=== PATIENT | female | born 1975 | race Two or more races ===

== ENCOUNTER 2021-05-07 13:36 | Emergency (ER) | payer MEDICAID, MEDICARE, OTHER ==
[~2021-05-07] VITALS: Ht 160 cm; Wt 64.4 kg
[2021-05-07 14:20] VITALS: BP 131/74
[2021-05-07] MEDS ORDERED: ACETAMINOPHEN 325 MG TAB PO ONE (15:15)
== END 2021-05-07 15:48 | disposition home or self-care (01) ==
LOC: ER 13:36
DX: S90.122A Contusion of left lesser toe(s) without damage to nail, initial encounter (principal); L03.032 Cellulitis of left toe; E11.9 Type 2 diabetes mellitus without complications; E78.5 Hyperlipidemia, unspecified; I10 Essential (primary) hypertension; W22.8XXA Striking against or struck by other objects, initial encounter; Y93.89 Activity, other specified; Y92.89 Other specified places as the place of occurrence of the external cause; Y99.8 Other external cause status
CPT/HCPCS: 10060; 73630

== ENCOUNTER 2022-07-28 20:21 | Emergency (ER) | payer BC, MEDICAID, OTHER ==
[~2022-07-28] VITALS: Ht 160 cm; Wt 68.3 kg
[2022-07-28] MEDS ORDERED: HYDROcodone-ACET 5/325MG TAB PO ONE (20:45)
[2022-07-28 21:45] LABS: Urine Bacteria FEW /hpf (None Seen); Urine Blood 3+ /uL (Negative); Urine Mucus FEW (None Seen); Urine Specific Gravity 1.025 (1.001-1.035); Urine WBC 21 /hpf (0 - 5)
[2022-07-28 22:00] LABS: Basophils # (auto) 0 10 ^3/uL (0-0.2); Basophils % (auto) 0.8 % (0.0-2.0); Eosinophils # (auto) 0.1 10 ^3/uL (0-0.8); Eosinophils % (auto) 1.5 % (0.0-7.0); Hematocrit 30.9 % (36.0-46.0); Hemoglobin 10.4 g/dL (12.2-16.2); Lymphocytes # (auto) 1.2 10 ^3/uL (0.4-5.4); Lymphocytes % (auto) 19.2 % (10.0-50.0); Mean Corpuscular Hemoglobin 28.8 pg (28.0-32.0); Mean Corpuscular Hgb Conc. 33.6 g/dL (32.0-36.0); Mean Corpuscular Volume 85.5 fL (80.0-100.0); Monocytes # (auto) 0.5 10 ^3/uL (0-1.3); Monocytes % (auto) 8.9 % (0.0-12.0); Neutrophils # (auto) 4.3 10 ^3/uL (1.6-8.6); Neutrophils % (auto) 69.6 % (37.0-80.0); Nucleated Red Blood Cells % 0.1 %; Red Blood Cells 3.61 10^6/uL (4.0-5.20); Red Cell Distribution Width 14.4 % (11.8-14.3); White Blood Cell 6.2 10^3/uL (4.4-10.8)
[2022-07-28 22:15] LABS: Albumin 2.9 g/dL (3.4-5.0); BUN/Creatinine Ratio 20.5; Calcium 8.5 mg/dL (8.5-10.1); Potassium 4.1 mmol/L (3.5-5.1)
[2022-07-28 22:17] LABS: Bilirubin, Total 0.3 mg/dL (0.2-1.0); Total Protein 7.2 g/dL (6.4-8.2)
[2022-07-29] MEDS ORDERED: SUMA50TA16 PO (02:06)
[2022-07-29 02:57] VITALS: BP 135/80
[2022-07-29] MEDS ORDERED: KETOROLAC TROMETH 60MG/2ML VIAL IM ONE (03:30)
== END 2022-07-29 05:06 | disposition home or self-care (01) ==
LOC: ER 20:21
DX: R51.9 Headache, unspecified (principal); I10 Essential (primary) hypertension; E11.9 Type 2 diabetes mellitus without complications; E78.5 Hyperlipidemia, unspecified
CPT/HCPCS: 36415; 70450; 80053; 81001; 81025; 82962; 85025; 93005; 96372; 99285; J1885

== ENCOUNTER 2024-03-14 20:16 | Inpatient (IN) | payer BC, OTHER ==
[~2024-03-14] VITALS: Ht 160 cm; Wt 70.1 kg
[~2024-03-14 20:16] MED LIST: SUMA50TA16 PO
[2024-03-14 21:24] LABS: Urine Bacteria None Seen /hpf (None Seen)
[2024-03-14 21:36] LABS: Urine Blood TRACE /uL (Negative); Urine Clarity Ex.Turbid (Clear); Urine Color Light-Brown (Yellow); Urine Protein, UAD 2+ (Negative); Urine Specific Gravity 1.023 (1.001-1.035); Urine Urobilinogen Normal (Negative); Urine WBC 87 /hpf (0 - 5); Urine WBC Clumps PRESENT /hpf (None Seen); Urine pH 5.5 (5.0-9.0)
[2024-03-14] MEDS: SODIUM CHLORIDE 0.9% 1,000 ML IV ONE (21:36)
[2024-03-14 21:39] LABS: Basophils # (auto) 0 10 ^3/uL (0-0.2); Eosinophils # (auto) 0.2 10 ^3/uL (0-0.8); Lymphocytes # (auto) 1.4 10 ^3/uL (0.4-5.4); Neutrophils # (auto) 2.9 10 ^3/uL (1.6-8.6); Red Cell Distribution Width 16.8 % (11.8-14.3)
[2024-03-14 21:41] LABS: Basophils % (auto) 0.7 % (0.0-2.0); Eosinophils % (auto) 3.1 % (0.0-7.0); Hematocrit 28.8 % (36.0-46.0); Hemoglobin 8.6 g/dL (12.2-16.2); Lymphocytes % (auto) 27.1 % (10.0-50.0); Mean Corpuscular Hemoglobin 21.2 pg (28.0-32.0); Mean Corpuscular Hgb Conc. 29.8 g/dL (32.0-36.0); Mean Corpuscular Volume 71.3 fL (80.0-100.0); Monocytes # (auto) 0.5 10 ^3/uL (0-1.3); Monocytes % (auto) 10.9 % (0.0-12.0); Neutrophils % (auto) 58.2 % (37.0-80.0); Red Blood Cells 4.04 10^6/uL (4.0-5.20); White Blood Cell 5.1 10^3/uL (4.4-10.8)
[2024-03-14 22:00] LABS: INR 0.92 (0.9-1.15); Partial Thromboplastin Time 23.9 SEC (24.5-34.5); Prothrombin Time 9.8 sec (9.3-11.8)
[2024-03-14 22:01] LABS: Alanine Aminotransferase 12 U/L (7-40); Albumin 4.2 g/dL (3.2-4.8); Alkaline Phosphatase 100 U/L (46-116); Anion Gap 7 (5-15); Aspartate Aminotransferase 11 U/L (13-40); BUN/Creatinine Ratio 12.2 (10.0-20.0); Bilirubin, Total 0.3 mg/dL (0.2-1.0); Blood Urea Nitrogen 12 mg/dL (9-23); Calcium 9.5 mg/dL (8.5-10.1); Carbon Dioxide 27 mmol/L (20-30); Chloride 98 mmol/L (98-107); Potassium 4.1 mmol/L (3.5-5.1); Sodium 132 mmol/L (136-145); Total Protein 7.6 g/dL (5.7-8.2)
[2024-03-14 22:05] LABS: Glucose 430 mg/dL (74-106); Lactic Acid w/Reflex 2.6 mmol/L (0.4-2.0)
[2024-03-14 22:30] VITALS: PULSE 76; RESP 18; O2SAT 96
[2024-03-14] MEDS ORDERED: ACETAMINOPHEN 325 MG TAB PO PRN (22:30)
[2024-03-14] MEDS ORDERED: DOCUSATE SOD 100 MG CAP PO PRN (22:30)
[2024-03-14] MEDS ORDERED: HYDROcodone-ACET 5/325MG TAB PO PRN (22:30)
[2024-03-14] MEDS ORDERED: ONDANSETRON HCL 4 MG/2 ML VIAL IV PRN (22:30)
[2024-03-14] MEDS ORDERED: hydrALAZINE HCL 20 MG/ML VL IV PRN (22:30)
[2024-03-14] MEDS ORDERED: MORPHINE SULFATE INJ 2 MG/ml SYRG IV PRN (23:00)
[2024-03-14] MEDS ORDERED: NITROGLYCERIN 0.4 MG SL TAB SL PRN (23:00)
[2024-03-14] MEDS: SODIUM CHLORIDE 0.9% 1,000 ML IV SCH (23:15)
[2024-03-14] MEDS: PIPERACILLIN-TAZOB 3.375GM 100 ML IV ONE (23:15)
[2024-03-15] VITALS (8 sets, daily range): BP systolic 107–146; BP diastolic 63–81; PULSE 89–115; RESP 17–21; TEMP 97.6–98.2; O2SAT 94–100
[2024-03-15] MEDS: ACCU-CHEK COMFORT CURVE STRIP VI SCH ×2 (00:10→12:39)
[2024-03-15] MEDS: InsuLIN REG 1unit/0.01ml Soln (100units/ml) SC SCH ×2 (00:14→12:39)
[2024-03-15 05:00] LABS: Monocytes # (auto) 0.7 10 ^3/uL (0-1.3)
[2024-03-15 05:02] LABS: Basophils # (auto) 0.1 10 ^3/uL (0-0.2); Basophils % (auto) 0.9 % (0.0-2.0); Eosinophils # (auto) 0.1 10 ^3/uL (0-0.8); Eosinophils % (auto) 2.1 % (0.0-7.0); Hematocrit 24.1 % (36.0-46.0); Hemoglobin 7.4 g/dL (12.2-16.2); Lymphocytes # (auto) 1.4 10 ^3/uL (0.4-5.4); Lymphocytes % (auto) 21.4 % (10.0-50.0); Mean Corpuscular Hemoglobin 21.8 pg (28.0-32.0); Mean Corpuscular Hgb Conc. 30.5 g/dL (32.0-36.0); Mean Corpuscular Volume 71.4 fL (80.0-100.0); Monocytes % (auto) 10.8 % (0.0-12.0); Neutrophils # (auto) 4.1 10 ^3/uL (1.6-8.6); Neutrophils % (auto) 64.8 % (37.0-80.0); Red Blood Cells 3.38 10^6/uL (4.0-5.20); Red Cell Distribution Width 16.5 % (11.8-14.3); White Blood Cell 6.3 10^3/uL (4.4-10.8)
[2024-03-15 05:18] LABS: Albumin 3.5 g/dL (3.2-4.8); Alkaline Phosphatase 96 U/L (46-116); Anion Gap 8 (5-15); Aspartate Aminotransferase < 8 U/L (13-40); BUN/Creatinine Ratio 11.5 (10.0-20.0); Blood Urea Nitrogen 10 mg/dL (9-23); Carbon Dioxide 23 mmol/L (20-30); Chloride 105 mmol/L (98-107); Glucose 272 mg/dL (74-106); Potassium 3.7 mmol/L (3.5-5.1); Sodium 136 mmol/L (136-145)
[2024-03-15 05:19] LABS: Bilirubin, Total 0.3 mg/dL (0.2-1.0); Total Protein 6.5 g/dL (5.7-8.2)
[2024-03-15 05:20] LABS: Alanine Aminotransferase < 9 U/L (7-40)
[2024-03-15] MEDS ORDERED: LISI-275 PO (05:38)
[2024-03-15] MEDS ORDERED: METF-370 PO (05:38)
[2024-03-15] MEDS ORDERED: ATOR10TA PO (05:38)
[2024-03-15] MEDS: DEXTROSE (50%) 50ML SYRG IV PRN (08:00)
[2024-03-15] MEDS: cefTRIAXone 1GM/50ML D5W 50 ML IV SCH (08:36)
[2024-03-15] MEDS ORDERED: DEXTROSE (50%) 50ML SYRG IV PRN (09:00)
[2024-03-15 17:26] LABS: Magnesium 1.4 mg/dL (1.6-2.6)
[2024-03-15 17:27] LABS: % Iron Saturation 3.8 % (15-50); Phosphorus 2.9 mg/dL (2.4-5.1)
[2024-03-15 17:30] LABS: Folate (Folic Acid) 17.43 ng/mL (>5.38); Thyroid Stimulating Hormone 0.87 uIU/mL (0.55-4.78)
[2024-03-15 17:31] LABS: Ferritin 1.9 ng/mL (10-291)
[2024-03-15] MEDS: PANTOPRAZOLE 40 MG/10 ML VIAL INJ IV ONE (17:50)
[2024-03-15] MEDS: SODIUM CHLORIDE 0.9% 1,000 ML IV SCH (17:51)
[2024-03-15] MEDS: ATORVASTATIN 20 MG TAB PO SCH (21:31)
[2024-03-15] MEDS: DOCUSATE SOD 100 MG CAP PO SCH (21:31)
[2024-03-15] MEDS: PANTOPRAZOLE 40 MG/10 ML VIAL INJ IV SCH (21:31)
[2024-03-16] VITALS (7 sets, daily range): BP systolic 107–142; BP diastolic 67–88; PULSE 86–103; RESP 16–21; TEMP 97.6–98.3; O2SAT 95–99
[2024-03-16 06:55] LABS: Albumin 3.3 g/dL (3.2-4.8); Alkaline Phosphatase 63 U/L (46-116); Anion Gap 5 (5-15); Aspartate Aminotransferase 10 U/L (13-40); BUN/Creatinine Ratio 13.2 (10.0-20.0); Blood Urea Nitrogen 7 mg/dL (9-23); Calcium 8.4 mg/dL (8.5-10.1); Carbon Dioxide 26 mmol/L (20-30); Chloride 106 mmol/L (98-107); Glucose 124 mg/dL (74-106); Magnesium 1.5 mg/dL (1.6-2.6); Potassium 3.5 mmol/L (3.5-5.1); Sodium 137 mmol/L (136-145)
[2024-03-16 06:56] LABS: Alanine Aminotransferase < 9 U/L (7-40); Bilirubin, Total 0.4 mg/dL (0.2-1.0); Phosphorus 3.6 mg/dL (2.4-5.1); Total Protein 5.9 g/dL (5.7-8.2)
[2024-03-16 06:59] LABS: Basophils # (auto) 0 10 ^3/uL (0-0.2); Lymphocytes # (auto) 1.6 10 ^3/uL (0.4-5.4); Monocytes # (auto) 0.5 10 ^3/uL (0-1.3); Neutrophils # (auto) 2.5 10 ^3/uL (1.6-8.6); White Blood Cell 4.8 10^3/uL (4.4-10.8)
[2024-03-16 07:02] LABS: Basophils % (auto) 0.8 % (0.0-2.0); Eosinophils # (auto) 0.2 10 ^3/uL (0-0.8); Eosinophils % (auto) 3.1 % (0.0-7.0); Hematocrit 24.1 % (36.0-46.0); Hemoglobin 7.6 g/dL (12.2-16.2); Mean Corpuscular Hgb Conc. 31.6 g/dL (32.0-36.0); Mean Corpuscular Volume 69.8 fL (80.0-100.0); Monocytes % (auto) 10.4 % (0.0-12.0); Neutrophils % (auto) 52.7 % (37.0-80.0); Red Blood Cells 3.45 10^6/uL (4.0-5.20); Red Cell Distribution Width 16.7 % (11.8-14.3)
[2024-03-16] MEDS ORDERED: OMNIPAQUE 12mg/ml 500ml ORAL SOLUTION PO ONE (07:45)
[2024-03-16] MEDS: POLYETHYLENE GLYCOL 17 GM PWDR PO SCH (09:27)
[2024-03-17 05:00] VITALS: BP 142/79; PULSE 86; RESP 18; TEMP 97.5; O2SAT 96
[2024-03-17 06:23] LABS: Basophils # (auto) 0 10 ^3/uL (0-0.2); Eosinophils # (auto) 0.1 10 ^3/uL (0-0.8); Hemoglobin 7.4 g/dL (12.2-16.2); Lymphocytes # (auto) 1.4 10 ^3/uL (0.4-5.4); Monocytes # (auto) 0.4 10 ^3/uL (0-1.3); Red Blood Cells 3.35 10^6/uL (4.0-5.20)
[2024-03-17 06:25] LABS: Basophils % (auto) 1.2 % (0.0-2.0); Eosinophils % (auto) 2.9 % (0.0-7.0); Hematocrit 23.4 % (36.0-46.0); Lymphocytes % (auto) 35.8 % (10.0-50.0); Mean Corpuscular Hgb Conc. 31.5 g/dL (32.0-36.0); Monocytes % (auto) 10.5 % (0.0-12.0); Neutrophils % (auto) 49.6 % (37.0-80.0); Red Cell Distribution Width 16.9 % (11.8-14.3)
[2024-03-17 06:34] LABS: Anion Gap 5 (5-15); Carbon Dioxide 27 mmol/L (20-30); Chloride 105 mmol/L (98-107); Potassium 3.6 mmol/L (3.5-5.1); Sodium 137 mmol/L (136-145)
[2024-03-17 06:40] LABS: BUN/Creatinine Ratio 10.5 (10.0-20.0); Blood Urea Nitrogen 6 mg/dL (9-23); Glucose 124 mg/dL (74-106)
[2024-03-17 08:00] VITALS: PULSE 93
[2024-03-17 09:00] VITALS: BP 122/72; PULSE 97; RESP 20; TEMP 98.4; O2SAT 98
[2024-03-17] MEDS ORDERED: LACTULOSE 20Gm/30ML SOLN PO SCH (10:00)
[2024-03-17] MEDS ORDERED: PANT40T PO (10:23)
[2024-03-17] MEDS ORDERED: ACET-1882 PO (10:23)
[2024-03-17] MEDS ORDERED: FERR1TAB36 PO (10:23)
[2024-03-17] MEDS ORDERED: DOCU-265 PO (10:23)
[2024-03-17] MEDS: LACTULOSE 20Gm/30ML SOLN PO ONE (10:36)
[2024-03-17 11:08] VITALS: TEMP 36.9
[2024-03-17] MEDS ORDERED: IRON SUCROSE COMPLEX 100 ML IV SCH (12:00)
[2024-03-17 13:00] VITALS: BP 145/92; PULSE 105; RESP 20; TEMP 98.6; O2SAT 95
[2024-03-17] MEDS: SODIUM FERR GLUC 62.5MG/5ML 125 MG in SODIUM CHL 0.9% 100 ML IV SCH (13:07)
[2024-03-17] MEDS ORDERED: POLY17PO5 PO (13:15)
[2024-03-17] MEDS ORDERED: INSLANTI SC (14:04)
[2024-03-18 11:02] LABS: Carcinoembryonic Antigen 4.1 ng/mL (<=5.0)
[2024-03-20 01:06] LABS: AFP Serum Tumor Marker 2.2 ng/mL (0.0-6.4)
== END 2024-03-17 15:25 | disposition home or self-care (01) | DRG 638 ==
LOC: ER 20:16 → TELE 22:52 → TELE-CENTR 03-15 04:44
PROVIDERS: ADMIT Internal Medicine Pulmonary Disease; ATTEND Internal Medicine Gastroenterology
DX: E11.65 Type 2 diabetes mellitus with hyperglycemia (principal); K92.2 Gastrointestinal hemorrhage, unspecified; N39.0 Urinary tract infection, site not specified; K64.9 Unspecified hemorrhoids; K59.09 Other constipation; D25.9 Leiomyoma of uterus, unspecified; E78.00 Pure hypercholesterolemia, unspecified; I10 Essential (primary) hypertension; J45.909 Unspecified asthma, uncomplicated; D50.9 Iron deficiency anemia, unspecified; Z91.148 Patient's other noncompliance with medication regimen for other reason
CPT/HCPCS: 36415; 71045; 74176; 80048; 80053; 80061; 81001; 82010; 82105; 82306; 82378; 82607; 82728; 82746; 83010; 83036; 83540; 83550; 83605; 83615; 83690; 83735; 83880; 84100; 84443; 84484; 84702; 85025; 85045; 85610; 85730; 86301; 87040; 87086; 93005; C9113; G0378; J1815; J2543

== ENCOUNTER → 2025-03-11 | Outpatient (CLI) | payer BC ==
[~2025-03-11] MED LIST changes: +ACET-1882 PO; +ATOR10TA PO; +DOCU-265 PO; +FERR1TAB36 PO; +INSLANTI SC; +LISI-275 PO; +METF-370 PO; +PANT40T PO; +POLY17PO5 PO; -SUMA50TA16 PO
[2025-03-11 10:52] LABS: Basophils # (auto) 0 10 ^3/uL (0-0.2); Eosinophils # (auto) 0.2 10 ^3/uL (0-0.8); Eosinophils % (auto) 3.4 % (0.0-7.0); Hematocrit 31.2 % (36.0-46.0); Hemoglobin 10.9 g/dL (12.2-16.2); Lymphocytes # (auto) 0.9 10 ^3/uL (0.4-5.4); Lymphocytes % (auto) 20.5 % (10.0-50.0); Mean Corpuscular Hemoglobin 31.1 pg (28.0-32.0); Mean Corpuscular Hgb Conc. 34.8 g/dL (32.0-36.0); Mean Corpuscular Volume 89.3 fL (80.0-100.0); Monocytes # (auto) 0.5 10 ^3/uL (0-1.3); Neutrophils # (auto) 2.9 10 ^3/uL (1.6-8.6); Neutrophils % (auto) 64.1 % (37.0-80.0); Platelet Count (auto) 335 10^3/uL (140-450); Red Blood Cells 3.49 10^6/uL (4.0-5.20); Red Cell Distribution Width 12.9 % (11.8-14.3); White Blood Cell 4.6 10^3/uL (4.4-10.8)
[2025-03-11 11:23] LABS: Creatinine, Urine 39.92 mg/dL (30.0-125.0)
[2025-03-11 11:26] LABS: Alanine Aminotransferase 14 U/L (7-40); Albumin 3.8 g/dL (3.2-4.8); Alkaline Phosphatase 73 U/L (46-116); Anion Gap 5 (5-15); Aspartate Aminotransferase 10 U/L (13-40); BUN/Creatinine Ratio 17.4 (10.0-20.0); Blood Urea Nitrogen 12 mg/dL (9-23); Calcium 9.2 mg/dL (8.7-10.4); Carbon Dioxide 25 mmol/L (20-31); Chloride 104 mmol/L (98-107); Glucose 296 mg/dL (74-106); LDL Cholesterol 101 mg/dL (< 100); Potassium 4.3 mmol/L (3.5-5.1); Sodium 134 mmol/L (136-145); Total Protein 6.7 g/dL (5.7-8.2); Triglycerides 59 mg/dL (< 150)
[2025-03-11 11:27] LABS: Bilirubin, Total 0.3 mg/dL (0.2-1.0); Cholesterol 212 mg/dL (< 200); HDL Cholesterol 102 mg/dL (40-59)
== END | disposition home or self-care (01) ==
LOC: LAB 10:24
PROVIDERS: ATTEND Nurse Practitioner Family
DX: I10 Essential (primary) hypertension (principal); E11.9 Type 2 diabetes mellitus without complications; E55.9 Vitamin D deficiency, unspecified; Z00.01 Encounter for general adult medical examination with abnormal findings
CPT/HCPCS: 36415; 80053; 80061; 82043; 82306; 82570; 83036; 84443; 85025

== ENCOUNTER 2025-07-19 18:19 | Inpatient (IN) | payer BC ==
[~2025-07-19] VITALS: Ht 160 cm; Wt 69.7 kg
[~2025-07-19 18:19] MED LIST changes: +ALBU108A5 INH; +FERR1TAB8 PO; +GAB100C PO; +INSU100I21 SC
--- NOTE | 2025-07-19 18:57 | ED.PDOC ---
History of Present Illness HPI Comments This is a 49 year-old female, with a Hx of DM and bilateral hand neuropathy, who presents to the ED with a chief complaint of high blood sugar levels for the past X2 days. Patient states she is unsure why her BG levels are so elevated. Patient was recently diagnosed with diabetes myelitis, but it has not had proper education through her primary care with respect to medication management. Patient takes insulin, but states she does not want to take too much insulin. Upon arrival to the ED, patients BG levels are 501. Patient has no further complaints at this time and otherwise denies N/V/D, dizziness, weakness, headache, or fatigue. Vital signs were stable Chief Complaint: Hyperglycemia Time Seen by MD: 18:31 Reviewed Notes: Nurses Notes, Medications, Allergies Allergies: Coded Allergies: NO KNOWN ALLERGIES (Unverified , 07/28/22) Home Meds Active Scripts Insulin Glargine (Lantus) 100 Unit/Ml Inj, 5 UNIT SC DAILY for 30 Days, #30 INJ Prov:REINIER WARREN 03/17/24 Polyethylene Glycol 3350 (Miralax Mix-in [place]) 17 Gm Pow, 17 GM PO BID for 30 Days, #30 POW Prov:REINIER WARREN 03/17/24 Ferrous Sulfate (Iron (Ferrous Sulfate)) 50 Mg Tab, 50 MG PO DAILY for 30 Days, #30 TAB Prov:REINIER WARREN 03/17/24 Pantoprazole Sodium Sesquihydr (Pantoprazole Sodium) 40 Mg Tab, 40 MG PO DAILY for 30 Days, #30 TAB Prov:REINIER WARREN 03/17/24 Docusate Sodium (Docusate Sodium) 100 Mg Cap, 100 MG PO BID for 30 Days, #30 CAP Prov:REINIER WARREN 03/17/24 Acetaminophen (Acetaminophen) 325 Mg Tab, 650 MG PO Q6HP PRN for 30 Days, #240 TAB Prov:REINIER WARREN 03/17/24 Reported Medications Lisinopril (Lisinopril) 5 Mg Tab, 5 MG PO 2XW, TAB 03/15/24 Atorvastatin Calcium (Lipitor) 10 Mg Tab, 1 TAB PO QPM, #90 TAB 1 Refill 03/15/24 Metformin Hydrochloride (Metformin Hcl) 500 Mg Tab, 1 TAB PO BID, #60 TAB 3 Refills 03/15/24 Information Source: Patient Mode of Arrival: Ambulatory Severity: Moderate Duration: Since onset Prehospital treatment: None Associated signs and symptoms High Blood Sugar Past Medical History PAST MEDICAL HISTORY: Asthma, DM, High Lipids, HTN Surgical History: Denies all surgeries DIRECTOR INSTRUCTIONAL MATERIAL History: No Pertinent DIRECTOR INSTRUCTIONAL MATERIAL History Family History Family History: Unknown Social History Smoker: Non-Smoker Alcohol: Denies ETOH Use Drugs: Denies Drug Use Lives In: Home Constitutional: reports: others (High Blood Sugar ); denies: chills, diaphoresis, fatigue, fever, malaise, sweats, weakness EENTM: denies: blurred vision, double vision, ear bleeding, ear discharge, ear drainage, ear pain, ear ringing, eye pain, eye redness, hearing loss, mouth pain, mouth swelling, nasal discharge, nose bleeding, nose congestion, nose pain, photophobia, tearing, throat pain, throat swelling, voice changes, others Respiratory: denies: cough, hemoptysis, orthopnea, SOB at rest, shortness of breath, SOB with excertion, stridor, wheezing, others Cardiovascular: denies: chest pain, dizzy spells, diaphoresis, Dyspnea on exertion, edema, irregular heart beat, left arm pain, lightheadedness, palpitations, PND, syncope, others Gastrointestinal: denies: abdomen distended, abdominal pain, blood streaked bowels, constipated, diarrhea, dysphagia, difficulty swallowing, hematemesis, melena, nausea, poor appetite, poor fluid intake, rectal bleeding, rectal pain, vomiting, others Genitourinary: denies: abnormal vagina bleeding, burning, dyspareunia, dysuria, flank pain, frequency, hematuria, incontinence, pain, , vagina discharge, urgency, others Neurological: denies: dizziness, fainting, headache, left sided numbness, left sided weakness, numbness, paresthesia, pre-existing deficit, right sided numbness, right sided weakness, seizure, speech problems, tingling, tremors, weakness, others Musculoskeletal: reports: others (Bilateral hand and bilateral foot neuropathy); denies: back pain, gout, joint pain, joint swelling, muscle pain, muscle stiffness, neck pain Integumetry: denies: bruises, change in color, change in hair/nails, dryness, laceration, lesions, lumps, rash, wounds, others Allergic/Immunocompromised: denies: Difficulty Healing, Frequent Infections, Hives, Itching, others Hematologic/Lymphatic: denies: anemia, blood clots, easy bleeding, easy b ruising, swollen glands, others Endocrine: denies: excessive hunger, excessive sweating, excessive thirst, excessive urination, flushing, intolerance to cold, intolerance to heat, unexplained weight gain, unexplained weight loss, others Psychiatric: denies: anxiety, bipolar disorder, depression, hopeless, panic disorder, schizophrenia, sleepless, suicidal, others All Other Systems: Reviewed and Negative Physical Exam General Appearance: Moderate Distress ([id number] distress due to neuropathy and anxiety related to poor blood sugar management.), Normal HEENT: Normal ENT Inspection, Pharynx Normal, TMs Normal Neck: Full Range of Motion, Non-Tender, Normal, Normal Inspection Respiratory: Chest Non-Tender, Lungs Clear, No Accessory Muscle Use, No Respiratory Distress, Normal Breath Sounds Cardiovascular: No Edema, No JVD, No Murmur, No Gallop, Normal Peripheral Pulses, Regular Rate/Rhythm Breast Exam: Deferred Gastrointestinal: No Organomegaly, Non Tender, No Pulsatile Mass, Normal Bowel Sounds, Soft Genitalia: Deferred Pelvic: Deferred Rectal: Deferred Extremities: No calf tenderness, Normal capillary refill, Normal inspection, Normal range of motion, Non-tender, No pedal edema Neurologic: Alert Cerebellar Function: NOT DONE Reflexes: NOT DONE Skin: Dry, Normal Color, Warm Lymphatic: No Adenopathy Was a procedure done? Was a procedure done?: No Differential Dx Considerations may include: Hyperglycemia due to diabetes myelitis, sepsis, electrolyte abnormality, UTI X-Ray, Labs, Meds, VS Vital Signs Date Time Temp Pulse Resp B/P (MAP) Pulse Ox O2 Delivery O2 Flow Rate FiO2 07/19/25 19:50 97.9 94 18 122/68 (86) 97 97.9 07/19/25 19:50 Room Air* 0 21 07/19/25 18:26 98.3 93 18 138/94 95 98.3 Lab Test 07/19/25 21:56 07/19/25 19:55 07/19/25 19:50 07/19/25 19:48 Range/Units Troponin I High Sensitivity 72 *H 73 *H </=34 ng/L POC Glucose 462 *H 476 *H 70-106 mg/dl Test 07/19/25 19:05 07/19/25 18:44 07/19/25 18:31 07/19/25 18:30 Range/Units White Blood Count 5.9 4.4-10.8 10^3/uL Red Blood Count 3.92 L 4.0-5.20 10^6/uL Hemoglobin 9.2 L 12.2-16.2 g/dL Hematocrit 29.1 L 36.0-46.0 % Mean Corpuscular Volume 74.4 L 80.0-100.0 fL Mean Corpuscular Hemoglobin 23.5 L 28.0-32.0 pg Mean Corpuscular Hemoglobin Concent 31.6 L 32.0-36.0 g/dL Red Cell Distribution Width 16.3 H 11.8-14.3 % Platelet Count 421 140-450 10^3/uL Mean Platelet Volume 7.3 6.9-10.8 fL Neutrophils (%) (Auto) 77.2 37.0-80.0 % Lymphocytes (%) (Auto) 14.0 10.0-50.0 % Monocytes (%) (Auto) 7.5 0.0-12.0 % Eosinophils (%) (Auto) 0.8 0.0-7.0 % Basophils (%) (Auto) 0.5 0.0-2.0 % Neutrophils # (Auto) 4.6 1.6-8.6 10 ^3/uL Lymphocytes # (Auto) 0.8 0.4-5.4 10 ^3/uL Monocytes # (Auto) 0.4 0-1.3 10 ^3/uL Eosinophils # (Auto) 0 0-0.8 10 ^3/uL Basophils # (Auto) 0 0-0.2 10 ^3/uL Nucleated Red Blood Cells 0.0 % Sodium Level 128 L 136-145 mmol/L Potassium Level 4.8 3.5-5.1 mmol/L Chloride Level 94 L 98-107 mmol/L Carbon Dioxide Level 25 20-31 mmol/L Anion Gap 9 5-15 Blood Urea Nitrogen 16 9-23 mg/dL Creatinine 1.10 H 0.550-1.02 mg/dL Glomerular Filtration Rate Calc 61 >90 mL/min BUN/Creatinine Ratio 14.5 10.0-20.0 Serum Glucose 547 *H 74-106 mg/dL Calcium Level 8.4 L 8.7-10.4 mg/dL Troponin I High Sensitivity 77 *H </=34 ng/L Urine Color Light-yellow Yellow Urine Clarity Clear Clear Urine pH 5.5 5.0-9.0 Urine Specific [place] 1.028 1.001-1.035 Urine Protein Trace H Negative Urine Ketones Negative Negative Urine Blood Negative Negative /uL Urine Nitrite Negative Negative Urine Bilirubin Negative Negative Urine Urobilinogen Normal Negative mg/dL Urine Leukocyte Esterase 1+ Negative /uL Urine RBC 3 0 - 4 /hpf Urine Microscopic WBC 7 H 0-5 /HPF Urine Squamous Epithelial Cells Few <5 /hpf Urine Bacteria None seen None Seen /hpf Urine Glucose 4+ H Normal mg/dL POC Glucose 528 *H 501 *H 70-106 mg/dl [place] [id number] Ph: [phone] DIAGNOSTIC IMAGING Diagnostic Imaging Report : [id number] Signed PATIENT: ESTELLA CHAPARROACCT: [id number] UNIT: [id number] : 1975 LOC: ER ROOM / BED: / AGE / SEX: 49 / F ADM STATUS: REG ER SERVICE 1844 ORDERING PHYSICIAN: RAMEZ FIELDS PAC PROCEDURE(s): CXRP - CHEST PORTABLE REASON: Chest pain ORDER NUMBER(s): [id number], ACCESSION NUMBER(s): [id number] EXAM: XY CHEST PORTABLE CLINICAL HISTORY: Chest pain TECHNIQUE: Single AP view of the chest WID: COMPARISON: XY CHEST PORTABLE on DOS: 03/14/24 FINDINGS: Lines and tubes: None Chest: The heart size and pulmonary vasculature is within normal limits. Subtle mixed opacity in the right lung base. No pneumothorax or pleural effusion. The osseous structures are grossly intact. IMPRESSION: 1. Subtle mixed opacity in the right lung base. DDX includes developing pneumonia, atelectasis, or superimposed soft tissue X-Ray, Labs, Meds, VS Comment All studies performed the ED were evaluated by me personally. Serum studies revealed a significant hyperglycemic state, hyponatremia, hypocalcemia, elevated troponins and urinalysis confirmed a urinary tract infection. EKG was unremarkable for any acute cardiac concern. Chest x-ray revealed a subtle mixed opacity in the right lung base which may represent pneumonia. Patient will be admitted for blood sugar management, pneumonia treatment as well as counseling with respect to proper management of blood sugar in the outpatient setting. Images Reviewed?: Images reviewed and evaluated by me Time of 1ST Reevaluation: 22:41 Reevaluation 1ST: Improved Consultation: PCP Patient Education/Counseling: Diagnosis, Treatment Family Education/Counseling: Diagnosis, Treatment, No Family Present SEPSIS Sepsis Screen Date sepsis recognized/suspect: Jul 19, 2025 Time Sepsis recognized/suspect: 1828 Recent Procedure: No On Antibiotic Therapy: No Respiratory Rate >20: No Heart Rate >90: Yes Temp<36 C (96.8 F) or >38.3 C: No SBP <90 or MAP <65 mmHG: No New Acute Mental Status Change: No Is the patient on CPAP, BIPAP,: No Physician Orders Chest Portable (07/19/25 18:44) Heplock Iv (07/19/25 18:44) Electrocardigram (07/19/25 18:44) Sodium Chloride 0.9% (07/19/25 22:45) Calcium Gluc 1,000mg/50ml-Ns (07/19/25 22:45) Accucheck (07/19/25 22:34) Ceftriaxone 1gm/50ml (Rocephin) (07/19/25 22:45) Vital Signs Date Time Temp Pulse Resp B/P (MAP) Pulse Ox O2 Delivery O2 Flow Rate FiO2 07/19/25 19:50 97.9 94 18 122/68 (86) 97 97.9 07/19/25 19:50 Room Air* 0 21 07/19/25 18:26 98.3 93 18 138/94 95 98.3 Laboratory Tests Test 07/19/25 19:05 White Blood Count 5.9 10^3/uL (4.4-10.8) Departure 1 Departure Time of Disposition: 22:41 Impression: Primary Impression: Hyperglycemia due to diabetes mellitus Additional Impressions: Hyponatremia Hypocalcemia Elevated troponin UTI (urinary tract infection) Pneumonia Disposition: 09 ADMITTED INPATIENT Condition: Stable Discharged With: Self Critical Care Note Critical Care Time?: No Stability Stability form required: No Heart Score Heart Score: Heart Score Response (Comments) Value History N/A 0 EKG N/A 0 Age N/A 0 Risk Factors N/A 0 Troponin N/A 0 Total 0 I personally scribed for RAMEZ FIELDS PAC ([email or web address]) on 07/19/25 at 18:57. Electronically submitted by Rica Simons ([email or web address]). I personally scribed for RAMEZ FIELDS PAC ([email or web address]) on 07/19/25 at 19:10. Electronically submitted by Rica Simons ([email or web address]). I personally scribed for RAMEZ FIELDS PAC ([email or web address]) on 07/19/25 at 19:46. Elect ronically submitted by Rica Simons ([email or web address]). RAMEZ FIELDS PAC Jul 19, 2025 18:57
[2025-07-19 19:20] LABS: Nucleated Red Blood Cells % 0.0 %
[2025-07-19 19:22] LABS: Hematocrit 29.1 % (36.0-46.0); Hemoglobin 9.2 g/dL (12.2-16.2); Mean Corpuscular Hemoglobin 23.5 pg (28.0-32.0); Mean Corpuscular Volume 74.4 fL (80.0-100.0)
[2025-07-19 19:30] LABS: Potassium 4.8 mmol/L (3.5-5.1)
[2025-07-19 19:31] LABS: Anion Gap 9 (5-15); Carbon Dioxide 25 mmol/L (20-31)
[2025-07-19 19:36] LABS: BUN/Creatinine Ratio 14.5 (10.0-20.0); Blood Urea Nitrogen 16 mg/dL (9-23)
[2025-07-19 19:41] LABS: Calcium 8.4 mg/dL (8.7-10.4); Chloride 94 mmol/L (98-107); Sodium 128 mmol/L (136-145)
--- NOTE | 2025-07-19 19:41 | DVH ---
EXAM: XY CHEST PORTABLE CLINICAL HISTORY: Chest pain TECHNIQUE: Single AP view of the chest WID: COMPARISON: XY CHEST PORTABLE on DOS: 03/14/24 FINDINGS: Lines and tubes: None Chest: The heart size and pulmonary vasculature is within normal limits. Subtle mixed opacity in the right lung base. No pneumothorax or pleural effusion. The osseous structures are grossly intact. IMPRESSION: 1. Subtle mixed opacity in the right lung base. DDX includes developing pneumonia, atelectasis, or s uperimposed soft tissue
[2025-07-19 19:45] LABS: Glucose 547 mg/dL (74-106)
[2025-07-19] MEDS: HYDROcodone-ACET 5/325MG TAB PO ONE (19:50)
[2025-07-19 20:50] LABS: Urine Protein, UAD TRACE (Negative)
[2025-07-19] MEDS ORDERED: InsuLIN REG 1unit/0.01ml Soln (100units/ml) IV ONE (22:45)
[2025-07-19] MEDS: SODIUM CHLORIDE 0.9% 1,000 ML IV ONE (23:12)
[2025-07-19] MEDS: CALCIUM GLUC 1,000mg/50ml-NS 50 ML IV ONE (23:25)
[2025-07-19] MEDS: InsuLIN REG 1unit/0.01ml Soln (100units/ml) IV ONE (23:52)
[2025-07-20] VITALS (9 sets, daily range): BP systolic 104–157; BP diastolic 72–92; PULSE 78–91; RESP 16–20; TEMP 97.7–98.8; O2SAT 97–99
[2025-07-20] MEDS: AZITHROMYCIN 500MG/ 250ML 250 ML IV ONE (00:22)
[2025-07-20] MEDS ORDERED: DEXTROSE (50%) 50ML SYRG IV PRN (00:30)
--- NOTE | 2025-07-20 00:54 | DVHHPRES ---
History of Present Illness Resident Creating Document: LON KEVIN RESIDENT History of Present Illness This is a 49-year-old female with past medical history of hypertension, dyslipidemia, type 2 diabetes mellitus with uncontrolled hyperglycemia, history of chronic anemia due to heavy menstrual bleeding. Patient presented to the ED with chief complaint of dizziness and generalized weakness associated with dry mouth. Patient states that blood glucose has been significantly elevated at home over 560. Patient states that was feeling dry mouth, dizzy and weak and stated that Humalog insulin was not able to control her sugar. Patient denied fever/chills, nausea or vomiting. On admission, hemoglobin was 9.2 CBC on normal range, blood glucose [id number] but anion gap was nine. There were no ketones on urinalysis but this one was suggesting UTI for which IV ceftriaxone was started. Troponins came back slightly elevated at 72. We ordered EKG and echocardiogram. We will start the patient on Rviocf73 units daily and moderate sliding scale insulin. We will admit the patient for further assessment and management of blood glucose. Home medications: Metformin 1000 mg daily, Humalog7 units in the morning,5 units in the afternoon after lunch and 7 units at night. Surgical history: Denies Social history: Patient denies alcohol intake, drug intake or smoking. Cardiovascular: HTN, hyperipidemia Endocrine: Diabetes Past Surgical History: None Family History: None Smoke: No ALCOHOL: none Drugs: None Lives: with Family Domestic Violence: Neg Review of Systems Constitutional: Yes: Weakness; No: Fever, Chills, Sweats, Malaise, Other Eyes: No: Pain, Vision change, Conjunctivae inflammation, Eyelid inflammation, Other, Redness ENT: Other (Dry mucous membrane); No: Ear pain, Ear discharge, Nose pain, Nose discharge, Nose congestion, Mouth pain, Mouth swelling, Throat pain, Throat swelling Respiratory: No: Cough, Dry, Shortness of breath, SOB with excertion, Wheezing, Hemoptysis, Pleuritic Pain, Sputum, Wheezing, Other Cardiovascular: No: Chest Pain, Palpitations, Orthopnea, Paroxysmal Noc. Dyspnea, Edema, Lt Headedness, Other Gastrointestinal: No: Nausea, Vomiting, Abdominal Pain, Diarrhea, Constipation, Melena, Hematochezia, Other Genitourinary: No Dysuria, No Frequency, No Incontinence, No Hematuria, No Retention, No Other Musculoskeletal: No: other, neck pain, shoulder pain, arm pain, back pain, hand pain, leg pain, foot pain Skin: No: Rash, Lesions, Jaundice, Bruising, Other Neurological: No: Weakness, Numbness, Incoordination, Change in speech, Confusion, Seizures, Other Allergies: Coded Allergies: NO KNOWN ALLERGIES (Unverified , 07/28/22) Medications Current Medications Medications Dose Ordered Sig/Damaso Route Start Time Stop Time Status Last Admin Dose Admin Sodium Chloride 1,000 ml @ 60 mls/hr [id number] IV 07/20/25 00:30 UNV Acetaminophen 650 mg Q6HP PRN PO 07/20/25 00:30 UNV Diagnostic Test (Pha) 1 strip ACHS 07/20/25 07:00 UNV Insulin Human Regular HS SC 07/20/25 22:00 UNV Insulin Human Regular AC SC 07/20/25 07:00 UNV Dextrose 50 ml UD PRN IV 07/20/25 00:30 UNV Insulin Glargine 15 units QAM SC 07/20/25 00:30 UNV Ceftriaxone Sodium 50 ml @ 100 mls/hr DAILY IV 07/20/25 00:45 UNV Exam Vital Signs Vital Signs Date Time Temp Pulse Resp B/P (MAP) Pulse Ox O2 Delivery O2 Flow Rate FiO2 07/19/25 19:50 97.9 94 18 122/68 (86) 97 97.9 07/19/25 19:50 Room Air* 0 21 General Appearance: Alert, Oriented X3, Cooperative, No acute distress HEENT: Atraumatic, PERRLA, EOMI, Other (Dry mucous membranes) Respiratory: Clear to auscultation, Normal air movement Cardiovascular: Regular rate, Normal S1, Normal S2, No murmurs Abdominal: Normal bowel sounds, Soft, No tenderness, No hepatospenomegaly, No masses Extremities: No clubbing, No cyanosis, No edema, Normal pulses, No tenderness/swelling Skin: No rashes, No breakdown, No significant lesion Neuro: Normal gait, Normal speech, Strength at 5/5 X4 ext, Normal tone, Sensation intact, Cranial nerves 3-12 NL, Reflexes 2+ Psych/Mental Status: Mental status NL, Mood NL Labs/Xrays Labs Test 07/19/25 23:33 07/19/25 21:56 07/19/25 19:05 07/19/25 18:44 Range/Units POC Glucose 407 *H 70-106 mg/dl Troponin I High Sensitivity 72 *H </=34 ng/L White Blood Count 5.9 4.4-10.8 10^3/uL Red Blood Count 3.92 L 4.0-5.20 10^6/uL Hemoglobin 9.2 L 12.2-16.2 g/dL Hematocrit 29.1 L 36.0-46.0 % Mean Corpuscular Volume 74.4 L 80.0-100.0 fL Mean Corpuscular Hemoglobin 23.5 L 28.0-32.0 pg Mean Corpuscular Hemoglobin Concent 31.6 L 32.0-36.0 g/dL Red Cell Distribution Width 16.3 H 11.8-14.3 % Platelet Count 421 140-450 10^3/uL Mean Platelet Volume 7.3 6.9-10.8 fL Neutrophils (%) (Auto) 77.2 37.0-80.0 % Lymphocytes (%) (Auto) 14.0 10.0-50.0 % Monocytes (%) (Auto) 7.5 0.0-12.0 % Eosinophils (%) (Auto) 0.8 0.0-7.0 % Basophils (%) (Auto) 0.5 0.0-2.0 % Neutrophils # (Auto) 4.6 1.6-8.6 10 ^3/uL Lymphocytes # (Auto) 0.8 0.4-5.4 10 ^3/uL Monocytes # (Auto) 0.4 0-1.3 10 ^3/uL Eosinophils # (Auto) 0 0-0.8 10 ^3/uL Basophils # (Auto) 0 0-0.2 10 ^3/uL Nucleated Red Blood Cells 0.0 % Sodium Level 128 L 136-145 mmol/L Potassium Level 4.8 3.5-5.1 mmol/L Chloride Level 94 L 98-107 mmol/L Carbon Dioxide Level 25 20-31 mmol/L Anion Gap 9 5-15 Blood Urea Nitrogen 16 9-23 mg/dL Creatinine 1.10 H 0.550-1.02 mg/dL Glomerular Filtration Rate Calc 61 >90 mL/min BUN/Creatinine Ratio 14.5 10.0-20.0 Serum Glucose 547 *H 74-106 mg/dL Calcium Level 8.4 L 8.7-10.4 mg/dL Urine Color Light-yellow Yellow Urine Clarity Clear Clear Urine pH 5.5 5.0-9.0 Urine Specific [place] 1.028 1.001-1.035 Urine Protein Trace H Negative Urine Ketones Negative Negative Urine Blood Negative Negative /uL Urine Nitrite Negative Negative Urine Bilirubin Negative Negative Urine Urobilinogen Normal Negative mg/dL Urine Leukocyte Esterase 1+ Negative /uL Urine RBC 3 0 - 4 /hpf Urine Microscopic WBC 7 H 0-5 /HPF Urine Squamous Epithelial Cells Few <5 /hpf Urine Bacteria None seen None Seen /hpf Urine Glucose 4+ H Normal mg/dL SEPSIS Sepsis Screen Date sepsis recognized/suspect: Jul 19, 2025 Time Sepsis recognized/suspect: 1828 Recent Procedure: No On Antibiotic Therapy: No Respiratory Rate >20: No Heart Rate >90: Yes Temp<36 C (96.8 F) or >38.3 C: No SBP <90 or MAP <65 mmHG: No New Acute Mental Status Change: No Is the patient on CPAP, BIPAP,: No Physician Orders Chest Portable (07/19/25 18:44) Heplock Iv (07/19/25 18:44) Electrocardigram (07/19/25 18:44) Accucheck (07/19/25 22:34) Azithromycin 500mg/ 250ml (Zithromax 50 (07/19/25 23:15) Beta-Hydroxybutyrate (07/20/25 00:00) Admit (07/20/25 00:23) Code Status (07/20/25 00:23) Vital Signs .PER UNIT PROTOCOL (07/20/25 00:23) Review Orders With Adm.Md (07/20/25 00:23) Encourage Activity As Tolerate (07/20/25 00:23) Consistent Carb(Ccho)Diabetes (07/20/25 Breakfast) Sodium Chloride 0.9% (07/20/25 00:30) Acetaminophen Tablet (Tylenol Tablet) (07/20/25 00:30) Notify Md Of Changes From Base (07/20/25 00:23) Advance Directive (07/20/25 00:23) Echo 2d Mode Cardiac Dop (07/20/25 00:23) Basic Metabolic Panel (07/21/25 04:00) Complete Blood Count (07/21/25 04:00) Lipid Panel (07/20/25 04:00) Urine Bacterial Culture (07/20/25 00:23) Patient Condition (07/20/25 00:23) Allergies (07/20/25 00:23) Drug Screen (07/20/25 00:23) Hemoglobin A1c (07/20/25 00:23) Electrocardigram (07/20/25 00:30) Glucose Blood (Accu-Chek Comfort Curve T (07/20/25 07:00) Insulin R (Human) (Insulin R) (07/20/25 22:00) Insulin R (Human) (Insulin R) (07/20/25 07:00) Dextrose 50% Syringe (07/20/25 00:30) Insulin Lantus (Glargine) (Lantus) (07/20/25 00:30) Ceftriaxone 1gm/50ml (Rocephin) (07/20/25 00:45) Vital Signs Date Time Temp Pulse Resp B/P (MAP) Pulse Ox O2 Delivery O2 Flow Rate FiO2 07/19/25 19:50 97.9 94 18 122/68 (86) 97 97.9 07/19/25 19:50 Room Air* 0 21 07/19/25 18:26 98.3 93 18 138/94 95 98.3 Laboratory Tests Test 07/19/25 19:05 White Blood Count 5.9 10^3/uL (4.4-10.8) Medications Medications Dose Ordered Sig/Damaso Route Start Time Stop Time Status Last Admin Dose Admin Azithromycin 250 ml @ 125 mls/hr ONCE ONCE IV 07/19/25 23:15 07/20/25 01:14 07/20/25 00:22 125 MLS/HR Calcium Gluconate/ Sodium Chloride 50 ml @ 100 mls/hr ONCE ONCE IV 07/19/25 22:45 07/19/25 23:14 DC 07/19/25 23:25 100 MLS/HR Ceftriaxone Sodium 50 ml @ 100 mls/hr ONCE ONCE IV 07/19/25 22:45 07/19/25 23:14 DC 07/19/25 23:51 100 MLS/HR Insulin Human Regular 12 units ONCE ONCE IV 07/19/25 23:45 07/19/25 23:46 DC 07/19/25 23:52 12 UNITS Sodium Chloride 1,000 ml @ 1,000 mls/hr Q1H ONCE IV 07/19/25 22:45 07/19/25 23:44 DC 07/19/25 23:12 1,000 MLS/HR Assessment/Plan Assessment/Plan Assessment/plan Acute severe uncontrolled type 2 diabetes with hyperglycemia without DKA UTI NSTEMI likely type Chronic microcytic hypochromic anemia Primary hypertension Dyslipidemia Plan -ordered EKG -troponins were positive 72-77 -ordered echocardiogram -urinalysis suggestive of UTI, start IV ceftriaxone daily -ordered hemoglobin A1c, blood glucose 547. Start Lantus 15 units daily and moderate sliding scale insulin -monitor blood glucose closely -iron tablets Goals of care discussed with the patient at bedside, full code Plan discussed with Dr. Bailey Plan discussed with: Patient My Orders Orders - LON KEVIN Procedure Category Date Status Time Beta-Hydroxybutyrate LAB 07/20/25 In Process 00:00 Admit ADMIT 07/20/25 Transmitted 00:23 Code Status CODE 07/20/25 Transmitted 00:23 Vital Signs GEE 07/20/25 In Process 00:23 Review Orders With GEE 07/20/25 In Process Adm. 00:23 Encourage Activity As GEE 07/20/25 In Process Tolerate 00:23 Consistent DIET 07/20/25 Transmitted Carb(Ccho)Diabetes Breakfast Sodium Chloride 0.9% PHA 07/20/25 Logged 00:30 Acetaminophen Tablet PHA 07/20/25 Logged (Tylenol Tablet) 00:30 Notify Of Changes GEE 07/20/25 In Process From Base 00:23 Advance Directive GEE 07/20/25 In Process 00:23 Echo 2d Mode Cardiac US 07/20/25 Logged DOP 00:23 Basic Metabolic Panel LAB 07/21/25 Verified 04:00 Complete Blood Count LAB 07/21/25 Verified 04:00 Lipid Panel LAB 07/20/25 Logged 04:00 Urine Bacterial EDWINA 07/20/25 Logged Culture 00:23 Patient Condition ORDERS 07/20/25 Transmitted 00:23 Allergies GEE 07/20/25 In Process 00:23 Drug Screen LAB 07/20/25 Logged 00:23 Hemoglobin A1c LAB 07/20/25 Logged 00:23 Electrocardigram EKG 07/20/25 Logged 00:30 Glucose Blood PHA 07/20/25 Logged (Accu-Chek Comfort 07:00 Insulin R (Human) PHA 07/20/25 Logged (Insulin R) 22:00 Insulin R (Human) PHA 07/20/25 Logged (Insulin R) 07:00 Dextrose 50% Syringe PHA 07/20/25 Logged 00:30 Insulin Lantus PHA 07/20/25 Logged (Glargine) (Lantus) 00:30 Ceftriaxone 1gm/50ml PHA 07/20/25 Logged (Rocephin) 00:45 Date of Service: Jul 20, 2025 ([place] Patient) Billing Provider: LON KEVIN Common Visit Codes: [id number] INP/OBS CARE (HIGH) Secondary Visit Codes: [id number] CARE PLAN 30 MINUTES LON KEVIN Jul 20, 2025 00:54 JOURDAN BAILEY MD Jul 20, 2025 13:03
[2025-07-20] MEDS: INSULIN LANTUS (GLARGINE) 1 /0.01ml (100units/ml) SC SCH (01:15)
[2025-07-20 03:53] LABS: Iron 26.0 ug/dL (50-170)
[2025-07-20 03:54] LABS: Triglycerides 133 mg/dL (< 150)
[2025-07-20 03:55] LABS: Total Iron Binding Capacity 344.0 ug/dL (250-425)
[2025-07-20 03:56] LABS: Cholesterol 191 mg/dL (< 200)
[2025-07-20] MEDS: SODIUM CHLORIDE 0.9% 1,000 ML IV SCH (04:28)
[2025-07-20 04:30] LABS: HDL Cholesterol 84 mg/dL (40-59)
[2025-07-20] MEDS: InsuLIN REG 1unit/0.01ml Soln (100units/ml) SC SCH ×2 (06:53→21:35)
[2025-07-20] MEDS: ACCU-CHEK COMFORT CURVE STRIP VI SCH (06:54)
--- NOTE | 2025-07-20 08:43 | ECG ---
[facility] Test Date: 2025-07-20 Test Time: 08:41:57 Pat Name: ESTELLA CHAPARRO Department: Room: [facility] B Gender: F Carboy Filler: shane : 1975 Requested By: LON GAN Order Number: [id number] Reading MD: Greg Raymond Measurements Intervals [place] Rate: 77 P: 25 DC: 155 QRS: 62 QRSD: 77 T: 55 QT: 371 QTc: 420 Interpretive Statements Sinus rhythm Electronically Signed On 07-24-2025 21:06:20 PDT by Greg Raymond Please click the below link to view image of tracing.
[2025-07-20 09:26] LABS: Amphetamine Screen, Urine Neg (NEGATIVE); Barbiturate Scree,Urine Neg (NEGATIVE); Benzodiazephine Screen, Urine Neg (NEGATIVE); Cannabinoid Screen, Urine Neg (NEGATIVE); Cocaine Screen, Urine Neg (NEGATIVE); Opiate Scree,Urine Neg (NEGATIVE); Phencyclidine Screen, Urine Neg (NEGATIVE)
--- NOTE | 2025-07-20 11:47 | DVHPN2 ---
Reviewed: Care Plan, H&P, Labs, Medications, Previous Orders, Radiology Changes from previous H/P or p: No Changes Eyes: No Pain, No Vision change, No Conjunctivae inflammation, No Eyelid inflammation, No Other, No Redness ENT: No Ear pain, No Ear discharge, No Nose pain, No Nose discharge, No Nose congestion, No Mouth pain, No Mouth swelling, No Throat pain, No Throat swelling; Other (Dry mucous membrane) Cardiovascular: No Chest Pain, No Palpitations, No Orthopnea, No Paroxysmal Noc. Dyspnea, No Edema, No Lt Headedness, No Other Respiratory: No Cough, No Dry, No Shortness of breath, No SOB with excertion, No Wheezing, No Hemoptysis, No Pleuritic Pain, No Sputum, No Other Gastrointestinal: No Nausea, No Vomiting, No Abdominal Pain, No Diarrhea, No Constipation, No Melena, No Hematochezia, No Other Genitourinary: No Dysuria, No Frequency, No Incontinence, No Hematuria, No Retention, No Other Musculoskeletal: No other, No neck pain, No shoulder pain, No arm pain, No back pain, No hand pain, No leg pain, No foot pain Skin: No Rash, No Lesions, No Jaundice, No Bruising, No Other Objective Vitals Vital Signs Date Time Temp Pulse Resp B/P (MAP) Pulse Ox O2 Delivery O2 Flow Rate FiO2 07/20/25 04:00 98.5 83 18 157/92 (113) 97 98.5 07/20/25 03:38 Room Air* 0 21 Intake/Output Intake and Output 07/20/25 07:00 Intake Total 240 ml Balance 240 ml Intake Oral 240 ml Medications Current Medications Medications Dose Ordered Sig/Damaso Route Start Time Stop Time Status Last Admin Dose Admin Sodium Chloride 1,000 ml @ 60 mls/hr [id number] IV 07/20/25 00:30 07/20/25 04:28 60 MLS/HR Acetaminophen 650 mg Q6HP PRN PO 07/20/25 00:30 Diagnostic Test (Pha) 1 strip ACHS 07/20/25 07:00 07/20/25 06:54 1 STRIP Insulin Human Regular HS SC 07/20/25 22:00 Insulin Human Regular AC SC 07/20/25 07:00 07/20/25 06:53 9 UNITS Dextrose 50 ml UD PRN IV 07/20/25 00:30 Insulin Glargine 15 units QAM SC 07/20/25 00:30 07/20/25 06:54 15 UNITS Ceftriaxone Sodium 50 ml @ 100 mls/hr DAILY@2100 IV 07/20/25 21:00 Laboratory Results Laboratory Tests 07/19/25 19:05 Chemistry Test 07/19/25 19:05 Calcium Level 8.4 mg/dL (8.7-10.4) L Lipid panel Test 07/20/25 03:08 Cholesterol Level 191 mg/dL (< 200) HDL Cholesterol 84 mg/dL (40-59) H Triglycerides Level 133 mg/dL (< 150) HgA1c, TSH Test 07/20/25 03:08 Hemoglobin A1c > 14.0 % A1C (<5.7) H Urinalysis Test 07/19/25 18:44 Urine Color Light-yellow (Yellow) Urine Clarity Clear (Clear) Urine pH 5.5 (5.0-9.0) Urine Specific [place] 1.028 (1.001-1.035) Urine Protein Trace (Negative) H Urine Ketones Negative (Negative) Urine Blood Negative /uL (Negative) Urine Nitrite Negative (Negative) Urine Bilirubin Negative (Negative) Urine Urobilinogen Normal mg/dL (Negative) Urine Leukocyte Esterase 1+ /uL (Negative) Urine RBC 3 /hpf (0 - 4) Urine Microscopic WBC 7 /HPF (0-5) H Urine Squamous Epithelial Cells Few /hpf (<5) Urine Bacteria None seen /hpf (None Seen) Urine Glucose 4+ mg/dL (Normal) H Labs and/or images reviewed: Labs reviewed by me, Image(s) reviewed by me Assessment/Plan Assessment/Plan Acute severe uncontrolled type 2 diabetes with hyperglycemia without DKA blood sugar 560, A1c more than 14, diabetic education Insulin aggressive sliding scale UTI urine cultures Rocephin NSTEMI likely type 2 Chronic microcytic hypochromic anemia secondary to heavy vaginal bleeding Primary hypertension Dyslipidemia Plan discussed with: Patient Date of Service: Jul 20, 2025 Billing Provider: RACHELLE MCKEON MD Common Visit Codes: [id number] INP/OBS CARE(HIGH) RACHELLE MCKEON MD Jul 20, 2025 11:47
[2025-07-20] MEDS: LISINOPRIL 20 MG TAB PO ONE (13:48)
[2025-07-20] MEDS: ACETAMINOPHEN 325 MG TAB PO PRN (23:45)
[2025-07-21] VITALS (9 sets, daily range): BP systolic 136–164; BP diastolic 86–97; PULSE 82–99; RESP 17–19; TEMP 97.6–98.8; O2SAT 95–98
[2025-07-21 06:17] LABS: Anion Gap 8 (5-15); Carbon Dioxide 23 mmol/L (20-31); Chloride 104 mmol/L (98-107); Potassium 4.0 mmol/L (3.5-5.1)
[2025-07-21 06:22] LABS: Calcium 8.0 mg/dL (8.7-10.4); Sodium 135 mmol/L (136-145)
[2025-07-21 06:24] LABS: BUN/Creatinine Ratio 20.3 (10.0-20.0); Blood Urea Nitrogen 15 mg/dL (9-23)
[2025-07-21 06:27] LABS: Glucose 160 mg/dL (74-106)
[2025-07-21 06:30] LABS: Hematocrit 25.3 % (36.0-46.0); Hemoglobin 8.3 g/dL (12.2-16.2); Mean Corpuscular Hemoglobin 24.2 pg (28.0-32.0); Mean Corpuscular Volume 73.4 fL (80.0-100.0); Nucleated Red Blood Cells % 0.1 %
[2025-07-21] MEDS: LISINOPRIL 20 MG TAB PO SCH (09:38)
--- NOTE | 2025-07-21 11:24 | DVHPN2 ---
Reviewed: Care Plan, H&P, Labs, Medications, Previous Orders, Radiology Changes from previous H/P or p: No Changes Eyes: No Pain, No Vision change, No Conjunctivae inflammation, No Eyelid inflammation, No Other, No Redness ENT: No Ear pain, No Ear discharge, No Nose pain, No Nose discharge, No Nose congestion, No Mouth pain, No Mouth swelling, No Throat pain, No Throat swelling; Other (Dry mucous membrane) Cardiovascular: No Chest Pain, No Palpitations, No Orthopnea, No Paroxysmal Noc. Dyspnea, No Edema, No Lt Headedness, No Other Respiratory: No Cough, No Dry, No Shortness of breath, No SOB with excertion, No Wheezing, No Hemoptysis, No Pleuritic Pain, No Sputum, No Other Gastrointestinal: No Nausea, No Vomiting, No Abdominal Pain, No Diarrhea, No Constipation, No Melena, No Hematochezia, No Other Genitourinary: No Dysuria, No Frequency, No Incontinence, No Hematuria, No Retention, No Other Musculoskeletal: No other, No neck pain, No shoulder pain, No arm pain, No back pain, No hand pain, No leg pain, No foot pain Skin: No Rash, No Lesions, No Jaundice, No Bruising, No Other Objective Vitals Vital Signs Date Time Temp Pulse Resp B/P (MAP) Pulse Ox O2 Delivery O2 Flow Rate FiO2 07/21/25 09:38 131/85 07/21/25 09:32 98.1 07/21/25 09:00 84 18 97 07/20/25 20:00 Room Air* 0 21 Intake/Output Intake and Output 07/21/25 07:00 Intake Total 2445 ml Balance 2445 ml Intake Oral 1725 ml IV Total 720 ml # Voids 3 Medications Current Medications Medications Dose Ordered Sig/Damaso Route Start Time Stop Time Status Last Admin Dose Admin Sodium Chloride 1,000 ml @ 60 mls/hr [id number] IV 07/20/25 00:30 07/20/25 19:25 60 MLS/HR Acetaminophen 650 mg Q6HP PRN PO 07/20/25 00:30 07/21/25 09:32 650 MG Diagnostic Test (Pha) 1 strip ACHS 07/20/25 07:00 07/21/25 06:25 1 STRIP Insulin Human Regular HS SC 07/20/25 22:00 07/20/25 21:35 3 UNITS Insulin Human Regular AC SC 07/20/25 07:00 07/21/25 06:21 3 UNITS Dextrose 50 ml UD PRN IV 07/20/25 00:30 Insulin Glargine 15 units QAM SC 07/20/25 00:30 07/21/25 06:22 15 UNITS Ceftriaxone Sodium 50 ml @ 100 mls/hr DAILY@2100 IV 07/20/25 21:00 07/20/25 21:42 100 MLS/HR Lisinopril 40 mg DAILY PO 07/21/25 10:00 07/21/25 09:38 40 MG Laboratory Results Laboratory Tests 07/21/25 05:05 Chemistry Test 07/21/25 05:05 Calcium Level 8.0 mg/dL (8.7-10.4) L Urinalysis Test 07/19/25 18:44 Urine Color Light-yellow (Yellow) Urine Clarity Clear (Clear) Urine pH 5.5 (5.0-9.0) Urine Specific [place] 1.028 (1.001-1.035) Urine Protein Trace (Negative) H Urine Ketones Negative (Negative) Urine Blood Negative /uL (Negative) Urine Nitrite Negative (Negative) Urine Bilirubin Negative (Negative) Urine Urobilinogen Normal mg/dL (Negative) Urine Leukocyte Esterase 1+ /uL (Negative) Urine RBC 3 /hpf (0 - 4) Urine Microscopic WBC 7 /HPF (0-5) H Urine Squamous Epithelial Cells Few /hpf (<5) Urine Bacteria None seen /hpf (None Seen) Urine Glucose 4+ mg/dL (Normal) H Microbiology Microbiology Date/Time Source Procedure Growth Status 07/20/25 00:23 Voided Urine Urine Culture - Preliminary Resulted Labs and/or images reviewed: Labs reviewed by me, Image(s) reviewed by me Assessment/Plan Assessment/Plan Acute severe uncontrolled type 2 diabetes with hyperglycemia without DKA blood sugar 560, A1c more than 14, diabetic education Insulin aggressive sliding scale UTI urine cultures Enterococcus species, final sensitivity pending, continue Rocephin NSTEMI likely type 2 Chronic microcytic hypochromic anemia secondary to heavy vaginal bleeding Primary hypertension Dyslipidemia Plan discussed with: Patient My Orders Orders - RACHELLE MCKEON MD Procedure Category Date Status Time Lisinopril Tablet PHA 07/21/25 In Process (Zestril Tablet) 10:00 Date of Service: Jul 21, 2025 Billing Provider: RACHELLE MCKEON MD Common Visit Codes: [id number] INP/OBS CARE(HIGH) RACHELLE MCKEON MD Jul 21, 2025 11:23
[2025-07-21] MEDS: ACCU-CHEK COMFORT CURVE STRIP VI SCH (11:30)
[2025-07-21] MEDS: InsuLIN REG 1unit/0.01ml Soln (100units/ml) SC SCH ×2 (11:30→22:01)
[2025-07-21] MEDS ORDERED: DEXTROSE (50%) 50ML SYRG IV PRN (11:30)
--- NOTE | 2025-07-21 16:35 | DVHSR ---
APPROVED REPORT EXAM: Two-dimensional and M-mode echocardiogram with Doppler and color Doppler. Blood Pressure: 163/96 mmHg INDICATION Syncope NSTEMI, stable angina RISK FACTORS Height: 63, Weight: 147 DIMENSIONS LVDd4.5 (3.8-5.7cm)LA (2D)3.8 (1.9-4.0cm)Aortic Root3.1 (2.0-3.7cm) LVDs2.9 (2.5-4.0cm)LA (MM) (1.9-4.0cm)Aortic Cusp Exc1.6 (1.5-2.0cm) EF (%) 65.0 (55-70%)Rt. Atrium3.7 (1.9-4.0cm)Asc. Aorta cm IVSd1.0 (0.7-1.1cm)RV (D) (1.8-2.4cm) PWd1.1 (0.7-1.1cm) Mitral Valve MitralMitral Stenosis E wave0.82m/sMV Mean GR.mmHg A wave1.07m/sMV Peak GR.mmHg E/A ratio0.82D MVAcm2 DECEL [id number] 1/2 [id number] IVRTmsDop MVA3.86cm2 Aortic Valve Aortic ValveAortic Stenosis V11.08m/Theodore Mean GR.6mmHg V21.77m/Theodore Peak GR.13mmHg LVOT Diameter2.0 (1.8-2.4cm)Doppler AVA1.92cm2 Pulmonic Valve V21.02m/s Tricuspid Valve TR Velocity2.17m/s [id number] Conclusion lvef 65% mild LVH normal rv function normal atria no sever valve abnormalities noted
[2025-07-21] MEDS: GABAPENTIN 100 MG CAP PO SCH (21:44)
[2025-07-22] VITALS (9 sets, daily range): BP systolic 98–136; BP diastolic 64–88; PULSE 20–96; RESP 17–20; TEMP 91–98.6; O2SAT 95–97
--- NOTE | 2025-07-22 11:25 | DVHPN2 ---
Reviewed: Care Plan, H&P, Labs, Medications, Previous Orders, Radiology Changes from previous H/P or p: No Changes Eyes: No Pain, No Vision change, No Conjunctivae inflammation, No Eyelid inflammation, No Other, No Redness ENT: No Ear pain, No Ear discharge, No Nose pain, No Nose discharge, No Nose congestion, No Mouth pain, No Mouth swelling, No Throat pain, No Throat swelling; Other (Dry mucous membrane) Cardiovascular: No Chest Pain, No Palpitations, No Orthopnea, No Paroxysmal Noc. Dyspnea, No Edema, No Lt Headedness, No Other Respiratory: No Cough, No Dry, No Shortness of breath, No SOB with excertion, No Wheezing, No Hemoptysis, No Pleuritic Pain, No Sputum, No Other Gastrointestinal: No Nausea, No Vomiting, No Abdominal Pain, No Diarrhea, No Constipation, No Melena, No Hematochezia, No Other Genitourinary: No Dysuria, No Frequency, No Incontinence, No Hematuria, No Retention, No Other Musculoskeletal: No other, No neck pain, No shoulder pain, No arm pain, No back pain, No hand pain, No leg pain, No foot pain Skin: No Rash, No Lesions, No Jaundice, No Bruising, No Other Objective Vitals Vital Signs Date Time Temp Pulse Resp B/P (MAP) Pulse Ox O2 Delivery O2 Flow Rate FiO2 07/22/25 10:04 145/76 07/22/25 08:38 98.1 85 18 95 98.1 07/21/25 20:00 Room Air* 0 21 Intake/Output Intake and Output 07/22/25 07:00 Intake Total 840 ml Balance 840 ml Intake Oral 790 ml IV Total 50 ml # Voids 7 Medications Current Medications Medications Dose Ordered Sig/Damaso Route Start Time Stop Time Status Last Admin Dose Admin Sodium Chloride 1,000 ml @ 60 mls/hr [id number] IV 07/20/25 00:30 07/22/25 02:30 60 MLS/HR Acetaminophen 650 mg Q6HP PRN PO 07/20/25 00:30 07/21/25 09:32 650 MG Insulin Glargine 15 units QAM SC 07/20/25 00:30 07/22/25 06:51 15 UNITS Ceftriaxone Sodium 50 ml @ 100 mls/hr DAILY@2100 IV 07/20/25 21:00 07/21/25 21:44 100 MLS/HR Lisinopril 40 mg DAILY PO 07/21/25 10:00 07/22/25 10:04 40 MG Diagnostic Test (Pha) 1 strip ACHS 07/21/25 11:30 07/22/25 06:42 1 STRIP Insulin Human Regular AC SC 07/21/25 11:30 07/21/25 17:13 4 UNITS Insulin Human Regular HS SC 07/21/25 22:00 07/21/25 22:01 4 UNITS Dextrose 50 ml UD PRN IV 07/21/25 11:30 Gabapentin 100 mg BID PO 07/21/25 22:00 07/22/25 10:01 100 MG Laboratory Results Laboratory Tests 07/21/25 05:05 Urinalysis Test 07/19/25 18:44 Urine Color Light-yellow (Yellow) Urine Clarity Clear (Clear) Urine pH 5.5 (5.0-9.0) Urine Specific [place] 1.028 (1.001-1.035) Urine Protein Trace (Negative) H Urine Ketones Negative (Negative) Urine Blood Negative /uL (Negative) Urine Nitrite Negative (Negative) Urine Bilirubin Negative (Negative) Urine Urobilinogen Normal mg/dL (Negative) Urine Leukocyte Esterase 1+ /uL (Negative) Urine RBC 3 /hpf (0 - 4) Urine Microscopic WBC 7 /HPF (0-5) H Urine Squamous Epithelial Cells Few /hpf (<5) Urine Bacteria None seen /hpf (None Seen) Urine Glucose 4+ mg/dL (Normal) H Microbiology Microbiology Date/Time Source Procedure Growth Status 07/20/25 00:23 Voided Urine Urine Culture - Preliminary Resulted Labs and/or images reviewed: Labs reviewed by me, Image(s) reviewed by me Assessment/Plan Assessment/Plan Acute severe uncontrolled type 2 diabetes with hyperglycemia without DKA blood sugar 560, A1c more than 14, diabetic education Insulin aggressive sliding scale UTI urine cultures Enterococcus species, final sensitivity pending, continue Rocephin NSTEMI likely type 2 Chronic microcytic hypochromic anemia secondary to heavy vaginal bleeding Primary hypertension Dyslipidemia RN Ivanna at bedside Plan discussed with: Patient My Orders Orders - RACHELLE MCKEON MD Procedure Category Date Status Time Glucose Blood PHA 07/21/25 In Process (Accu-Chek Comfort 11:30 Insulin R (Human) PHA 07/21/25 In Process (Insulin R) 11:30 Insulin R (Human) PHA 07/21/25 In Process (Insulin R) 22:00 Dextrose 50% Syringe PHA 07/21/25 In Process 11:30 Date of Service: Jul 22, 2025 Billing Provider: RACHELLE MCKEON MD Common Visit Codes: [id number] INP/OBS CARE(HIGH) RACHELLE MCKEON MD Jul 22, 2025 11:25
[2025-07-23 01:00] VITALS: BP 142/85; PULSE 90; RESP 18; TEMP 98.6; O2SAT 98
[2025-07-23 05:00] VITALS: BP 127/75; PULSE 92; RESP 20; TEMP 97.5; O2SAT 98
[2025-07-23 08:00] VITALS: PULSE 77; RESP 18; O2SAT 95
[2025-07-23 08:31] VITALS: BP_SYST 109; BP_SYST 128; BP_DIAS 67; BP_DIAS 71; PULSE 77; PULSE 78; RESP 18; TEMP 97.9; TEMP 98.5; O2SAT 94; O2SAT 95
[2025-07-23] MEDS ORDERED: LINE1TAB6 PO (08:32)
--- NOTE | 2025-07-23 08:36 | DVHPN2 ---
Reviewed: Care Plan, H&P, Labs, Medications, Previous Orders, Radiology Changes from previous H/P or p: No Changes Eyes: No Pain, No Vision change, No Conjunctivae inflammation, No Eyelid inflammation, No Other, No Redness ENT: No Ear pain, No Ear discharge, No Nose pain, No Nose discharge, No Nose congestion, No Mouth pain, No Mouth swelling, No Throat pain, No Throat swelling; Other (Dry mucous membrane) Cardiovascular: No Chest Pain, No Palpitations, No Orthopnea, No Paroxysmal Noc. Dyspnea, No Edema, No Lt Headedness, No Other Respiratory: No Cough, No Dry, No Shortness of breath, No SOB with excertion, No Wheezing, No Hemoptysis, No Pleuritic Pain, No Sputum, No Other Gastrointestinal: No Nausea, No Vomiting, No Abdominal Pain, No Diarrhea, No Constipation, No Melena, No Hematochezia, No Other Genitourinary: No Dysuria, No Frequency, No Incontinence, No Hematuria, No Retention, No Other Musculoskeletal: No other, No neck pain, No shoulder pain, No arm pain, No back pain, No hand pain, No leg pain, No foot pain Skin: No Rash, No Lesions, No Jaundice, No Bruising, No Other Objective Vitals Vital Signs Date Time Temp Pulse Resp B/P (MAP) Pulse Ox O2 Delivery O2 Flow Rate FiO2 07/23/25 05:00 97.5 92 20 127/75 (92) 98 97.5 07/22/25 20:00 Room Air* 0 21 Intake/Output Intake and Output 07/23/25 07:00 Intake Total 1450 ml Balance 1450 ml Intake Oral 1400 ml IV Total 50 ml Medications Current Medications Medications Dose Ordered Sig/Damaso Route Start Time Stop Time Status Last Admin Dose Admin Sodium Chloride 1,000 ml @ 60 mls/hr [id number] IV 07/20/25 00:30 07/22/25 19:10 60 MLS/HR Acetaminophen 650 mg Q6HP PRN PO 07/20/25 00:30 07/21/25 09:32 650 MG Insulin Glargine 15 units QAM SC 07/20/25 00:30 07/23/25 06:40 15 UNITS Ceftriaxone Sodium 50 ml @ 100 mls/hr DAILY@2100 IV 07/20/25 21:00 07/22/25 21:16 100 MLS/HR Lisinopril 40 mg DAILY PO 07/21/25 10:00 07/22/25 10:04 40 MG Diagnostic Test (Pha) 1 strip ACHS 07/21/25 11:30 07/23/25 06:27 1 STRIP Insulin Human Regular AC SC 07/21/25 11:30 07/23/25 06:40 4 UNITS Insulin Human Regular HS SC 07/21/25 22:00 07/22/25 21:40 6 UNITS Dextrose 50 ml UD PRN IV 07/21/25 11:30 Gabapentin 100 mg BID PO 07/21/25 22:00 07/22/25 21:45 100 MG Laboratory Results Laboratory Tests 07/21/25 05:05 Urinalysis Test 07/19/25 18:44 Urine Color Light-yellow (Yellow) Urine Clarity Clear (Clear) Urine pH 5.5 (5.0-9.0) Urine Specific [place] 1.028 (1.001-1.035) Urine Protein Trace (Negative) H Urine Ketones Negative (Negative) Urine Blood Negative /uL (Negative) Urine Nitrite Negative (Negative) Urine Bilirubin Negative (Negative) Urine Urobilinogen Normal mg/dL (Negative) Urine Leukocyte Esterase 1+ /uL (Negative) Urine RBC 3 /hpf (0 - 4) Urine Microscopic WBC 7 /HPF (0-5) H Urine Squamous Epithelial Cells Few /hpf (<5) Urine Bacteria None seen /hpf (None Seen) Urine Glucose 4+ mg/dL (Normal) H Microbiology Microbiology Date/Time Source Procedure Growth Status 07/20/25 00:23 Voided Urine Urine Culture - Preliminary Enterococcus faecalis Resulted Labs and/or images reviewed: Labs reviewed by me, Image(s) reviewed by me Assessment/Plan Assessment/Plan Acute severe uncontrolled type 2 diabetes with hyperglycemia without DKA blood sugar 560, A1c more than 14, diabetic education Insulin aggressive sliding scale; Patient currently taking insufficient dosage insulin at home.: Lantus 5 units subQ daily, lispro 6 units subQ TID, metformin 500 mg p.o. b.i.d.; will increase the doses at the time of discharge Acute urinary tract infection with E faecalis: DC Rocephin start Zyvox 600 mg IV q.12h NSTEMI likely type 2 Chronic microcytic hypochromic anemia secondary to heavy vaginal bleeding Primary hypertension Dyslipidemia Plan discussed with: Patient Date of Service: Jul 23, 2025 Billing Provider: RACHELLE MCKEON MD Common Visit Codes: [id number] INP/OBS CARE(HIGH) RACHELLE MCKEON MD Jul 23, 2025 08:36
[2025-07-23] MEDS ORDERED: LISI40TA16 PO (09:36)
--- NOTE | 2025-07-23 09:58 | DVHDS2 ---
Discharge Summary Date of Admission Jul 20, 2025 at 00:23 Date of Discharge: Jul 23, 2025 Admitting Diagnosis Uncontrolled diabetes Wounds: None Labs/Diagnostic Data: Laboratory Results Test 07/23/25 06:27 07/21/25 05:05 07/20/25 03:08 07/20/25 00:23 POC Glucose 180 mg/dl (70-106) White Blood Count 4.6 10^3/uL (4.4-10.8) Red Blood Count 3.44 10^6/uL (4.0-5.20) Hemoglobin 8.3 g/dL (12.2-16.2) Hematocrit 25.3 % (36.0-46.0) Mean Corpuscular Volume 73.4 fL (80.0-100.0) Mean Corpuscular Hemoglobin 24.2 pg (28.0-32.0) Mean Corpuscular Hemoglobin Concent 32.9 g/dL (32.0-36.0) Red Cell Distribution Width 16.2 % (11.8-14.3) Platelet Count 352 10^3/uL (140-450) Mean Platelet Volume 7.2 fL (6.9-10.8) Neutrophils (%) (Auto) 59.1 % (37.0-80.0) Lymphocytes (%) (Auto) 28.3 % (10.0-50.0) Monocytes (%) (Auto) 8.9 % (0.0-12.0) Eosinophils (%) (Auto) 3.0 % (0.0-7.0) Basophils (%) (Auto) 0.7 % (0.0-2.0) Neutrophils # (Auto) 2.7 10 ^3/uL (1.6-8.6) Lymphocytes # (Auto) 1.3 10 ^3/uL (0.4-5.4) Monocytes # (Auto) 0.4 10 ^3/uL (0-1.3) Eosinophils # (Auto) 0.1 10 ^3/uL (0-0.8) Basophils # (Auto) 0 10 ^3/uL (0-0.2) Nucleated Red Blood Cells 0.1 % Sodium Level 135 mmol/L (136-145) Potassium Level 4.0 mmol/L (3.5-5.1) Chloride Level 104 mmol/L (98-107) Carbon Dioxide Level 23 mmol/L (20-31) Anion Gap 8 (5-15) Blood Urea Nitrogen 15 mg/dL (9-23) Creatinine 0.74 mg/dL (0.550-1.02) Glomerular Filtration Rate Calc 99 mL/min (>90) BUN/Creatinine Ratio 20.3 (10.0-20.0) Serum Glucose 160 mg/dL (74-106) Calcium Level 8.0 mg/dL (8.7-10.4) Hemoglobin A1c > 14.0 % A1C (<5.7) Iron Level 26 ug/dL (50-170) Total Iron Binding Capacity 344 ug/dL (250-425) Percent Iron Saturation 7.6 % (15-50) Ferritin 5.8 ng/mL (10-291) Triglycerides Level 133 mg/dL (< 150) Cholesterol Level 191 mg/dL (< 200) LDL Cholesterol 97 mg/dL (< 100) HDL Cholesterol 84 mg/dL (40-59) Urine Opiates Screen Neg (NEGATIVE) Urine Fentanyl Screen Neg (NEGATIVE) Urine Barbiturates Screen Neg (NEGATIVE) Urine Phencyclidine Screen Neg (NEGATIVE) Urine Amphetamines Screen Neg (NEGATIVE) Urine Benzodiazepines Screen Neg (NEGATIVE) Urine Cocaine Screen Neg (NEGATIVE) Urine Cannabinoids Screen Neg (NEGATIVE) Test 07/19/25 21:56 07/19/25 18:44 Troponin I High Sensitivity 72 ng/L (</=34) Beta-Hydroxybutyric Acid 0.119 mmol/L (< 0.4) Urine Color Light-yellow (Yellow) Urine Clarity Clear (Clear) Urine pH 5.5 (5.0-9.0) Urine Specific [place] 1.028 (1.001-1.035) Urine Protein Trace (Negative) Urine Ketones Negative (Negative) Urine Blood Negative /uL (Negative) Urine Nitrite Negative (Negative) Urine Bilirubin Negative (Negative) Urine Urobilinogen Normal mg/dL (Negative) Urine Leukocyte Esterase 1+ /uL (Negative) Urine RBC 3 /hpf (0 - 4) Urine Microscopic WBC 7 /HPF (0-5) Urine Squamous Epithelial Cells Few /hpf (<5) Urine Bacteria None seen /hpf (None Seen) Urine Glucose 4+ mg/dL (Normal) Other Laboratory Tests 07/21/25 05:05 Brief Hx & Hospital Course: Year-old female admitted for uncontrolled diabetes blood sugar 560 A1c more than 14 diabetic education was given treated with the aggressive insulin sliding scale. Also had UTI treated with a Rocephin came back positive for E faecalis placed on Zyvox NSTEMI likely type 2 history of hypertension and hypercholesterol. Patient feels better with a stable vital signs and discharged home. Changes made to the discharge medications for the metformin insulin and lisinopril years in the discharge orders Consults/Reason for consult none Operations or Procedures none Condition at Discharge: Fair Final Diagnosis/Problems List Acute severe uncontrolled type 2 diabetes with hyperglycemia without DKA blood sugar 560, A1c more than 14, diabetic education Insulin aggressive sliding scale; Patient currently taking insufficient dosage insulin at home.: Lantus 5 units subQ daily, lispro 6 units subQ TID, metformin 500 mg p.o. b.i.d.; will increase the doses at the time of discharge Acute urinary tract infection with E faecalis: DC Rocephin start Zyvox 600 mg IV q.12h NSTEMI likely type 2 Chronic microcytic hypochromic anemia secondary to heavy vaginal bleeding Primary hypertension Dyslipidemia Discharge Disposition: Home Discharge Instruct/Medications Diet: Consistent carbohydrate Activity: Light activity Follow Up/Referral: Take metformin tablets 1000 mg times a day Take insulin as prescribed Dosage of lisinopril has been increased Medications: Lantus 30 units subQ HS 2 pens Humalog KwikPen 2 pens per sliding scale Handwritten prescription given Transmitted To pharmacy Zyvox lisinopril Scheduled Albuterol Sulfate (Albuterol Sulfate Hfa), 2 PUFF INH Q4-6HR PRN, (Reported) Atorvastatin Calcium (Lipitor), 1 TAB PO QPM, (Reported) Docusate Sodium (Docusate Sodium), 100 MG PO BID Ferrous Sulfate (Gnp Iron), 1 TAB PO DAILY, (Reported) Gabapentin (Gabapentin), 1 CAP PO BID, (Reported) Insulin Glargine (Lantus), 5 UNIT SC DAILY Insulin Lispro (Humalog Kevin Kwikpen), 6 UNIT SC TID, (Reported) Linezolid (Zyvox), 600 MG PO BIDAC Lisinopril (Lisinopril), 5 MG PO 2XW, (Reported) Lisinopril (Lisinopril), 1 TAB PO DAILY Metformin Hydrochloride (Metformin Hcl), 1 TAB PO BID, (Reported) Pantoprazole Sodium Sesquihydr (Pantoprazole Sodium), 40 MG PO DAILY Polyethylene Glycol 3350 (Miralax Mix-in [place]), 17 GM PO BID Scheduled PRN Acetaminophen (Acetaminophen), 650 MG PO Q6HP PRN 39 (Time taken for discharge summary 39 minutes) Discharge Statement: "Patient was advised to return to the ER or call 911 if any headaches, dizziness, shortness of breath, chest pain, abdominal pain, bleeding, fevers, or worsening of medical condition. Patient was counseled about treatment plan, medications, possible side effects, patientverbalized understanding. All questions were answered to the best of my ability. This discharge took greater then 30 minutes in planning, reviewing documentation, counseling the patient, and discussing with other team members." ASSESSMENT ASSESSMENT Hospital Course Improved Assessment Acute severe uncontrolled type 2 diabetes with hyperglycemia without DKA blood sugar 560, A1c more than 14, diabetic education Insulin aggressive sliding scale; Patient currently taking insufficient dosage insulin at home.: Lantus 5 units subQ daily, lispro 6 units subQ TID, metformin 500 mg p.o. b.i.d.; will increase the doses at the time of discharge Acute urinary tract infection with E faecalis: DC Rocephin start Zyvox 600 mg IV q.12h NSTEMI likely type 2 Chronic microcytic hypochromic anemia secondary to heavy vaginal bleeding Primary hypertension Dyslipidemia Date of Service: Jul 23, 2025 Billing Provider: RACHELLE MCKEON MD Common Visit Codes: [id number] DISCH DAY >30min RACHELLE MCKEON MD Jul 23, 2025 09:58
[2025-07-23 13:00] VITALS: BP 109/70; PULSE 79; RESP 18; TEMP 98.1; O2SAT 96
== END 2025-07-23 12:57 | disposition home or self-care (01) | DRG 637 ==
LOC: ER 18:22 → OVERFLOW 07-20 00:23 → WEST WING 07-20 03:38
PROVIDERS: ADMIT Family Medicine; ATTEND Family Medicine
DX: E11.65 Type 2 diabetes mellitus with hyperglycemia (principal); I21.A1 Myocardial infarction type 2; J18.9 Pneumonia, unspecified organism; N39.0 Urinary tract infection, site not specified; E87.1 Hypo-osmolality and hyponatremia; B95.2 Enterococcus as the cause of diseases classified elsewhere; D50.9 Iron deficiency anemia, unspecified; N93.9 Abnormal uterine and vaginal bleeding, unspecified; E83.51 Hypocalcemia; I10 Essential (primary) hypertension; J45.909 Unspecified asthma, uncomplicated; E78.00 Pure hypercholesterolemia, unspecified; E11.41 Type 2 diabetes mellitus with diabetic mononeuropathy; Z79.4 Long term (current) use of insulin; Z79.84 Long term (current) use of oral hypoglycemic drugs; Z79.899 Other long term (current) drug therapy
CPT/HCPCS: 36415; 71045; 80048; 80061; 80307; 81001; 82010; 82728; 82962; 83036; 83540; 83550; 84484; 85025; 87086; 87088; 87186; 93005; 93306; 96365; G0378; J1815